=== PATIENT | female | born 2000 | race Caucasian/White ===

== ENCOUNTER 2021-07-12 14:02 | Outpatient (REF) | payer OTHER, SELFPAY ==
[2021-07-12 14:31] LABS: MANUAL DIFF FLAG NO
[2021-07-12 14:54] LABS: Basophils Percent Auto 0.7 % (0-2); Eosinophils Absolute Auto 0.1 X10*3/uL (0.0-0.4); Eosinophils Percent Auto 1.2 % (0-4); Hematocrit 41.2 % (37.0-47.0); Imm Gran Abs Auto 0.03 X10*3/uL (0.00-0.03); Imm Gran Pct Auto 0.5 % (0.0-0.4); Lymphocytes Absolute Auto 1.8 X10*3/uL (1.2-4.9); Lymphocytes Percent Auto 30.5 % (20-40); Mean Corpuscular Hemoglobin 29.6 pg (27.0-33.0); Mean Corpuscular Volume 87.1 fL (80.0-98.0); Mean Platelet Volume 10.1 fL (9.4-12.3); Monocytes Absolute Auto 0.4 X10*3/uL (0.1-1.2); Monocytes Percent Auto 6.9 % (2-11); Neutrophils Absolute Auto 3.6 x10*3/uL (2.0-8.3); Neutrophils Percent Auto 60.2 % (45-73); Platelet Count 257 X10*3/uL (160-400); Red Blood Count 4.73 X10*6/uL (4.20-5.50); Red Cell Distribution Width 12.2 % (11.0-16.0)
[2021-07-12 15:15] LABS: C Reactive Protein 0.24 mg/dL (< or = 0.50)
[2021-07-12 15:33] LABS: Erythrocyte Sedimentation Rate 5 MM/HR (0-20)
== END 2021-07-12 14:03 | disposition home or self-care (01) ==
LOC: HO.LAB 14:02
PROVIDERS: Visit Provider Otolaryngology
DX: R42 Dizziness and giddiness (principal)
CPT/HCPCS: 36415; 85025; 85652; 86140